=== PATIENT | female | born 2000 | race Caucasian/White ===

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

== ENCOUNTER 2021-04-20 10:53 | Emergency (ER) | payer MEDICAID, OTHER ==
[~2021-04-20] VITALS: Ht 157.5 cm; Wt 77.1 kg
[2021-04-20 11:18] VITALS: BP 132/83
[2021-04-20] MEDS ORDERED: CODE5SYR5 PO (14:45)
[2021-04-20] MEDS ORDERED: PRED20TA5 PO (14:45)
[2021-04-20] MEDS ORDERED: ALBU0.0912 IH (14:45)
[2021-04-20] MEDS ORDERED: NAPR-54 PO (14:45)
--- NOTE | 2021-04-20 14:57 | NUR ---
Note jo annloree in ED - 04/20/21 at 1458 by [email or web address] Patient discharged with v/s stable. Written and verbal after care instructions ABOUT COVID 19 given and explained. Patient alert, oriented and verbalized understanding of instructions. Ambulatory with steady gait. All questions addressed prior to discharge. ID band removed. Patient advised to follow up with PMD. Rx of ALBUTEROL, PROMETHAZINE CODEINE, NAPROXEN AND PREDNISONE given. Patient educated on indication of medication including possible reaction and side effects. Opportunity to ask questions provided and answered.
== END 2021-04-20 14:55 | disposition home or self-care (01) ==
LOC: MED 10:53
DX: U07.1 COVID-19 (principal); Z88.1 Allergy status to other antibiotic agents; Z79.899 Other long term (current) drug therapy
CPT/HCPCS: 71045; 99283

== ENCOUNTER 2022-03-15 15:16 | Emergency (ER) | payer MEDICAID ==
[~2022-03-15] VITALS: Ht 157.5 cm; Wt 82.1 kg
[~2022-03-15 15:16] MED LIST changes: +ALBU0.0912 IH; +CODE5SYR5 PO; +NAPR-54 PO; +PRED20TA5 PO
[2022-03-15 15:39] VITALS: BP 133/69
[2022-03-15 16:06] LABS: BASOPHILS % (AUTO) 0.2 % (0.0-2.0); EOSINOPHILS # (AUTO) 0.1 K/uL (0-0.4); EOSINOPHILS % (AUTO) 0.7 % (0.0-4.0); HEMATOCRIT 41.4 % (36-48); HEMOGLOBIN 13.8 g/dL (12.0-16.0); LYMPHOCYTES # (AUTO) 1.7 K/uL (2.5-16.5); LYMPHOCYTES % (AUTO) 18.2 % (20.5-51.1); MEAN CORPUSCULAR HEMOGLOBIN 30 pg (27-31); MEAN CORPUSCULAR HGB CONC 33 g/dL (33-37); MEAN CORPUSCULAR VOLUME 88.6 fL (80-94); MONOCYTES # (AUTO) 0.5 K/uL (0.8-1.0); MONOCYTES % (AUTO) 5.3 % (1.7-9.3); NEUTROPHILS # (AUTO) 7.2 K/uL (1.8-7.7); NEUTROPHILS % (AUTO) 75.6 % (42.2-75.2); PLATELET COUNT (AUTO) 253 K/uL (140-450); RED BLOOD CELL COUNT(AUTO) 4.67 MIL/uL (4.20-5.40); WHITE BLOOD COUNT (AUTO) 9.5 K/uL (4.5-11.0)
[2022-03-15 16:22] LABS: ANION GAP 16.2 (8-16); CARBON DIOXIDE 22.2 mmol/L (21-32); CREATININE 0.6 mg/dL (0.6-1.3); POTASSIUM 3.4 mmol/L (3.5-5.1); TOTAL BILIRUBIN 0.4 mg/dL (0.0-1.0)
--- NOTE | 2022-03-15 17:10 | NUR ---
PATIENT LEFT WITHOUT BEING SEEN BY DR. ESPINAL. NO FURTHER CARE PROVIDED FOR PATIENT.
--- NOTE | 2022-03-15 18:00 | NUR ---
3RD NO ANSWER
== END 2022-03-15 18:00 | disposition left against medical advice (07) ==
LOC: MED 15:16
DX: O21.8 Other vomiting complicating pregnancy (principal); O26.891 Other specified pregnancy related conditions, first trimester; R10.30 Lower abdominal pain, unspecified; R51.9 Headache, unspecified; Z3A.08 8 weeks gestation of pregnancy; Z53.21 Procedure and treatment not carried out due to patient leaving prior to being seen by health care provider
CPT/HCPCS: 36415; 80053; 81002; 81025; 85025; 99283